=== PATIENT | male | born 1965 | race Caucasian/White ===

== ENCOUNTER → 2016-08-05 | Outpatient (CLI) | payer BC ==
[~2016-08-05] VITALS: Ht 175.3 cm; Wt 114.3 kg
[~2016-08-05] MED LIST: ADDERALL5 MG PO; ANTIVERT12.5 MG PO; CEFDINIR300 MG PO; DEXTROAMP-AMPHE10 MG; DEXTROAMP-AMPHE10 MG PO; FLONASE16 G1 BOTH NARES; GLUCOPHAGE1000 MG PO; HYDROCHLOROTH12.5 M1; HYDROCHLOROTH12.5 M3 PO; INVOKANA100 MG PO; LEVEMIR FL100 UNITS/; LEVOTHYROXINE150 MCG PO; LISINOPRIL PO; LISINOPRIL40 MG; LISINOPRIL40 MG PO; METFORMIN HCL1000 M1; MULTI VITAMIN1 EACH PO; ONGLYZA5 MG; PAIN RELIEVER325 MG PO; PRANDIN1 MG PO; SYNTHROID150 MCG; SYNTHROID25 MCG PO; TESSALON200 MG PO; TOPAMAX100 MG PO; TRULICITY1.5 MG/0.5 SC; VALIUM2 MG PO; ZOFRAN ODT4 MG PO
[2016-08-05 09:00] LABS: POINT-OF-CARE METER ID UU13113694
[2016-08-05 10:34] LABS: POINT-OF-CARE METER ID UU13113819
== END | disposition home or self-care (01) ==
LOC: AMB 08:28
PROVIDERS: Internal Medicine
PROC: 0WJP8ZZ Inspection of Gastrointestinal Tract, Via Natural or Artificial Opening Endoscopic Approach (ICD-10-PCS; principal; 2016-08-05)
DX: Z12.11 Encounter for screening for malignant neoplasm of colon (principal); K64.8 Other hemorrhoids; K62.5 Hemorrhage of anus and rectum; E11.9 Type 2 diabetes mellitus without complications; R01.1 Cardiac murmur, unspecified; I10 Essential (primary) hypertension; E66.9 Obesity, unspecified; Z68.38 Body mass index [BMI] 38.0-38.9, adult; G47.30 Sleep apnea, unspecified; D69.6 Thrombocytopenia, unspecified; Z82.49 Family history of ischemic heart disease and other diseases of the circulatory system; Z82.3 Family history of stroke; Z83.3 Family history of diabetes mellitus; Z88.0 Allergy status to penicillin
CPT/HCPCS: 82948; B4087; J2250